=== PATIENT | female | born 1950 | race Caucasian/White ===

== ENCOUNTER 2018-03-14 15:19 | Emergency (ER) | payer MEDICARE, BC ==
[~2018-03-14] VITALS: Ht 165.1 cm; Wt 60.0 kg
[2018-03-14 15:23] VITALS: BP 128/62; PULSE 71; RESP 18; O2SAT 95
[2018-03-14] MEDS ORDERED: DULE100A INH (15:33)
[2018-03-14] MEDS ORDERED: MONT10TA2 PO (15:33)
[2018-03-14] MEDS ORDERED: LIDOCAINE HCL 1% 30 ML VIAL INFIL ONE (15:45)
[2018-03-14] MEDS ORDERED: IBUPROFEN 600 MG TAB PO ONE (15:45)
[2018-03-14] MEDS ORDERED: TETANUS/DIPHTHERIA TOXOID ADULT 0.5 ML VIAL IM ONE (15:45)
--- NOTE | 2018-03-14 16:55 | PD ---
HPI Chief Complaint: Laceration/Skin Injury Time Seen by Provider: 15:30 Travel History International Travel<30 days: No Contact w/Intl Traveler<30days: No Traveled to known affect area: No History of Present Illness HPI This is a 67-year-old female who presents to the emergency department having been boat when she slipped and her leg got cut by a ladder. She sustained a laceration to leg which is severe, somewhat painful with no associated numbness or weakness. PFSH Past Medical History Asthma: Yes (seasonal) ?: Not Past Surgical History Abdominal Surgery: Yes (hernia) Gynecologic Surgery: Yes (hysterectomy) Tonsillectomy: Yes Social History Alcohol Use: Yes (socially) Tobacco Use: No Substance Use: No Allergies-Medications (Allergen,Severity, Reaction): Coded Allergies: No Known Allergies (Verified Allergy, Unknown, 03/14/18) Reported Meds & Prescriptions Reported Meds & Active Scripts Active Reported Dulera 120 Act Inh (Mometasone-Formoterol 120 Act Inh) 100-5 Mcg/Act Inh 2 Puff INH BID Singulair (Montelukast Sodium) 10 Mg Tab 10 Mg PO HS Review of Systems Except as stated in HPI: all other systems reviewed are Neg Physical Exam Narrative GENERAL: Well-appearing, no acute distress, nontoxic SKIN: 8 cm Linear laceration along the left medial leg immediately below the knee through the subcutaneous fat, but no muscle belly involvement or joint violation HEAD: Atraumatic. Normocephalic. ENT: No nasal bleeding or discharge. Moist mucous membranes MUSCULOSKELETAL: No obvious deformities. No clubbing. No cyanosis. No edema. NEUROLOGICAL: Awake and alert. No obvious cranial nerve deficits. Motor grossly within normal limits. Normal speech. PSYCHIATRIC: Appropriate mood and affect; insight and judgment normal. Data Data Last Documented VS Vital Signs Date Time Temp Pulse Resp B/P (MAP) Pulse Ox O2 Delivery O2 Flow Rate FiO2 03/14/18 15:23 71 18 128/62 (84) 95 Orders Orders Ibuprofen (Motrin) (03/14/18 15:45) Tetanus/Diphtheria Tox Adult (Tetanus/Di (03/14/18 15:45) Lidocaine 1% Inj (Xylocaine 1% Inj) (03/14/18 15:45) MDM Medical Decision Making Medical Screen Exam Complete: Yes Emergency Medical Condition: Yes Differential Diagnosis laceration, nerve injury, vascular injury Narrative Course This is a 67 year old female who presents to the emergency department having sustained a laceration to her right lower extremity. There is no obvious neurovascular injury. Laceration was repaired by physician electrician's assistant. Patient will be discharged home per Zenaida Sharp MD Mar 14, 2018 16:55
--- NOTE | 2018-03-14 17:04 | PD ---
Physical Exam Date Seen by Provider: Mar 14, 2018 Time Seen by Provider: 17:04 Data Data Last Documented VS Vital Signs Date Time Temp Pulse Resp B/P (MAP) Pulse Ox O2 Delivery O2 Flow Rate FiO2 03/14/18 15:23 71 18 128/62 (84) 95 Orders Orders Ibuprofen (Motrin) (03/14/18 15:45) Tetanus/Diphtheria Tox Adult (Tetanus/Di (03/14/18 15:45) Lidocaine 1% Inj (Xylocaine 1% Inj) (03/14/18 15:45) Ed Discharge Order (03/14/18 17:09) MDM Supervised Visit with GABI: No Narrative Course I was asked to evaluate this patient's right leg laceration. The patient was initially seen by Dr. Sharp. Please see her note for full H& P. On my exam there is a 7-8 cm laceration on the medial aspect of the right lower leg, just superior to the knee joint. No intrusion into the capsule. No active bleeding or visible foreign body. Laceration repair was performed. Please see my procedure note for details. I discussed prophylactic antibiotics with the patient. Given the risks of tendon injury with Cipro she declines this medication at the time. She will however take with Keflex and doxycycline. She was given detailed wound care instructions, instructed to monitor for signs of infection. Dr. Sharp retains care of this patient. Please see her note for disposition. Procedures Procedure Narrative LACERATION LOCATION: Medial aspect right leg LENGTH: 7-8 cm NUMBER OF STITCHES/FELICIA: 5 deep, 9 superficial REPAIR: The area of the laceration was prepped with Betadine and sterilely draped. The laceration was infiltrated with 1% lidocaine. The wound was copiously irrigated and explored without evidence of foreign body, tendon injury or neurovascular injury. The wound was closed using 3-0 Vicryl and 4-0 Prolene. This was a two layer repair. A sterile dressing was applied. The patient was advised to keep the dressing clean and dry. Patient tolerated the procedure well. Diagnosis Primary Impression: Laceration of right lower leg Qualified Codes: S81.811A - Laceration without foreign body, right lower leg, initial encounter Referrals: Primary Care Physician Patient Instructions: Care For Your Stitches (ED), General Instructions Additional Instruction: Rest, hydrate. Keep the wound clean, dry and covered. Keep the dressing that was applied today on for 24-48 hours. After that you may shower normally. Do not submerge the wound or soak. Allow the wound to air dry for 10-15 minutes before applying a clean, dry dressing. Wash your hands before and after dressing her wound. Apply a thin layer of antibiotic ointment such as Neosporin once daily. Begin antibiotics today and take them until every dose is gone. OTC medications as described on the label, as needed for pain. Ice packs or warm compresses applied to the area a few times a day may also help to reduce your pain. Do not use ice pack for longer than 10 minutes per session. Suture removal in 7-10 days. Monitor for signs of infection as discussed. Return to the ED should these occur. Follow-up with your primary care provider. Return to the ED for any urgent or emergent medical condition. Med/Other Pt SpecificInfo: Prescription(s) given Scripts Ibuprofen (Ibuprofen) 600 Mg Tab 600 MG PO Q8HR Y for PAIN, #15 TAB 0 Refills Prov: Zenaida Sharp MD 03/14/18 Doxycycline Hyclate (Doxycycline Hyclate) 100 Mg Cap 100 MG PO BID for Infection for 7 Days, #14 CAP 0 Refills Prov: Zenaida Sharp MD 03/14/18 Cephalexin (Keflex) 500 Mg Cap 500 MG PO Q6H for Infection for 7 Days, #28 CAP 0 Refills Prov: Zenaida Sharp MD 03/14/18 Disposition: 01 DISCHARGE HOME Condition: Stable Stacy Chou Mar 14, 2018 17:04
[2018-03-14] MEDS ORDERED: IBUP-232 PO (17:21)
[2018-03-14] MEDS ORDERED: CEPH-460 PO (17:21)
[2018-03-14] MEDS ORDERED: DOXY100C PO (17:21)
== END 2018-03-14 18:02 | disposition home or self-care (01) ==
LOC: NEPD 15:19
DX: S81.811A Laceration without foreign body, right lower leg, initial encounter (principal); W18.40XA Slipping, tripping and stumbling without falling, unspecified, initial encounter; Y92.814 Boat as the place of occurrence of the external cause; J45.909 Unspecified asthma, uncomplicated; Z23 Encounter for immunization
CPT/HCPCS: 12034; 90471; 90714